=== PATIENT | male | born 1965 | race Caucasian/White ===

== ENCOUNTER 2021-04-27 21:27 | Inpatient (IN) | payer OTHER ==
[~2021-04-27] VITALS: Ht 172.7 cm; Wt 81.6 kg
[~2021-04-27 21:27] MED LIST: ALDACTONE25 MG; AMIODARONE HCL200 MG; ASA81 MG; LASIX40 MG; REGLAN 10ML5 MG/ML; TOPROL XL25 MG; VASOTEC5 MG
[2021-05-01] MEDS ORDERED: ATORVASTATIN CA40 MG (08:06)
[2021-05-01] MEDS ORDERED: RANOLAZINE ER500 MG (08:07)
[2021-05-01] MEDS ORDERED: RAMIPRIL2.5 MG (08:07)
[2021-05-01] MEDS ORDERED: JULUCA 50-25 M1 EACH (08:07)
[2021-05-01] MEDS ORDERED: CLOPIDOGREL BIS75 MG (08:07)
[2021-05-01] MEDS ORDERED: EZETIMIBE10 MG (08:07)
[2021-05-01] MEDS ORDERED: LEVOTHYROXINE100 MCG (08:07)
[2021-05-05] MEDS ORDERED: AMOX-CLAV 875-1 EAC1 PO (15:20)
[2021-05-05] MEDS ORDERED: AMIODARONE HCL200 MG PO (15:20)
[2021-05-05] MEDS ORDERED: INTESTINEX680 M1 PO (15:20)
[2021-05-05] MEDS ORDERED: SPIRONOLACTONE25 MG PO (15:20)
[2021-05-05] MEDS ORDERED: POM (MEDICAMENTO EN PO (15:20)
[2021-05-05] MEDS ORDERED: JULUCA 50-25 M1 EACH PO (15:20)
[2021-05-05] MEDS ORDERED: CLOPIDOGREL BIS75 MG PO (15:20)
[2021-05-05] MEDS ORDERED: ENALAPRIL MALEAT5 MG PO (15:20)
[2021-05-05] MEDS ORDERED: SYNTHROID100 MCG PO (15:20)
[2021-05-05] MEDS ORDERED: FUROSEMIDE40 MG PO (15:20)
[2021-05-05] MEDS ORDERED: LIPITOR40 MG PO (15:20)
[2021-05-05] MEDS ORDERED: FAMOTIDINE20 MG PO (15:20)
[2021-05-05] MEDS ORDERED: CLOTRIMAZOLE45 G1 TOP (15:20)
[2021-05-05] MEDS ORDERED: LINEZOLID600 MG PO (15:20)
[2021-05-05] MEDS ORDERED: TOPROL XL25 M1 PO (15:20)
[2021-05-05] MEDS ORDERED: ST. JOSEPH ASPI81 M2 PO (15:20)
== END 2021-05-05 16:37 | disposition home or self-care (01) | DRG 603 ==
LOC: ER 21:27 → SEC-K 04-28 19:51 → SURH 04-28 20:14
PROVIDERS: ADMIT Internal Medicine; ATTEND Internal Medicine
PROC: 8E0ZXY6 Isolation (ICD-10-PCS; principal; 2021-04-28)
PROC: B24BZZZ Ultrasonography of Heart with Aorta (ICD-10-PCS; 2021-04-28)
DX: L03.312 Cellulitis of back [any part except buttock and flank] (principal); B54 Unspecified malaria; I42.9 Cardiomyopathy, unspecified; Z21 Asymptomatic human immunodeficiency virus [HIV] infection status; I11.9 Hypertensive heart disease without heart failure; I25.2 Old myocardial infarction; E03.9 Hypothyroidism, unspecified; Z95.810 Presence of automatic (implantable) cardiac defibrillator; R74.02 Elevation of levels of lactic acid dehydrogenase [LDH]

== ENCOUNTER 2021-11-23 08:54 | Emergency (ER) | payer OTHER ==
[~2021-11-23] VITALS: Ht 172.7 cm; Wt 52.2 kg
[~2021-11-23 08:54] MED LIST changes: +AMIODARONE HCL200 MG PO; +AMOX-CLAV 875-1 EAC1 PO; +ATORVASTATIN CA40 MG; +CLOPIDOGREL BIS75 MG; +CLOPIDOGREL BIS75 MG PO; +CLOTRIMAZOLE45 G1 TOP; +ENALAPRIL MALEAT5 MG PO; +EZETIMIBE10 MG; +FAMOTIDINE20 MG PO; +FUROSEMIDE40 MG PO; +INTESTINEX680 M1 PO; +JULUCA 50-25 M1 EACH; +JULUCA 50-25 M1 EACH PO; +LEVOTHYROXINE100 MCG; +LINEZOLID600 MG PO; +LIPITOR40 MG PO; +POM (MEDICAMENTO EN PO; +RAMIPRIL2.5 MG; +RANOLAZINE ER500 MG; +SPIRONOLACTONE25 MG PO; +ST. JOSEPH ASPI81 M2 PO; +SYNTHROID100 MCG PO; +TOPROL XL25 M1 PO
== END 2021-11-23 16:16 | disposition home or self-care (01) ==
LOC: ER 08:54
DX: R21 Rash and other nonspecific skin eruption (principal); B20 Human immunodeficiency virus [HIV] disease; B54 Unspecified malaria; Z91.013 Allergy to seafood; Z20.822 Contact with and (suspected) exposure to COVID-19

== ENCOUNTER → 2022-08-23 | Emergency (ER) | payer OTHER ==
[~2022-08-23] VITALS: Ht 172.7 cm; Wt 83.9 kg
[~2022-08-23] MED LIST changes: +CABENUVA 400 MG-4 ML; +DICLOFENAC POTA50 MG PO; +LASIX20 MG; +PRAVASTATIN SOD10 MG
== END | disposition home or self-care (01) ==
LOC: ER 15:39
DX: C18.9 Malignant neoplasm of colon, unspecified (principal); K62.5 Hemorrhage of anus and rectum; Z91.013 Allergy to seafood; I25.2 Old myocardial infarction; B20 Human immunodeficiency virus [HIV] disease; E03.9 Hypothyroidism, unspecified; Z95.810 Presence of automatic (implantable) cardiac defibrillator; Z20.822 Contact with and (suspected) exposure to COVID-19; R59.0 Localized enlarged lymph nodes; I10 Essential (primary) hypertension

== ENCOUNTER 2022-08-30 06:08 | Day surgery (SDC) | payer OTHER ==
[2022-08-30] MEDS ORDERED: TRAMADOL HCL50 MG PO (11:56)
== END 2022-08-30 13:50 | disposition home or self-care (01) ==
LOC: CIR.AMB 06:08
PROVIDERS: ATTEND Surgery
DX: C21.1 Malignant neoplasm of anal canal (principal); Z91.013 Allergy to seafood; K62.89 Other specified diseases of anus and rectum; R19.4 Change in bowel habit; I10 Essential (primary) hypertension; E03.9 Hypothyroidism, unspecified
CPT/HCPCS: 36561; 77001; C1788

== ENCOUNTER 2022-09-23 10:51 | Emergency (ER) | payer OTHER ==
[~2022-09-23] VITALS: Ht 172.7 cm; Wt 83.9 kg
[~2022-09-23 10:51] MED LIST changes: +TRAMADOL HCL50 MG PO
[2022-09-23] MEDS ORDERED: ZOFRAN8 MG PO (11:16)
[2022-09-23] MEDS ORDERED: PERCOCET 10-321 EACH PO (11:16)
== END 2022-09-23 17:39 | disposition home or self-care (01) ==
LOC: ER 10:51
DX: C21.8 Malignant neoplasm of overlapping sites of rectum, anus and anal canal (principal); R10.9 Unspecified abdominal pain; R11.10 Vomiting, unspecified; Z20.822 Contact with and (suspected) exposure to COVID-19; Z91.013 Allergy to seafood

== ENCOUNTER 2022-10-02 07:32 | Inpatient (IN) | payer OTHER ==
[~2022-10-02] VITALS: Ht 172.7 cm; Wt 81.6 kg
[~2022-10-02 07:32] MED LIST changes: +PERCOCET 10-321 EACH PO; +ZOFRAN8 MG PO
== END 2022-10-09 14:50 | disposition home or self-care (01) | DRG 977 ==
LOC: ER 07:32 → MEDJ 17:59 → SEC-K 17:59 → MEDJ 18:40
PROVIDERS: ADMIT Internal Medicine; ATTEND Internal Medicine
PROC: BW21ZZZ Computerized Tomography (CT Scan) of Abdomen and Pelvis (ICD-10-PCS; 2022-10-02)
PROC: 30233R1 Transfusion of Nonautologous Platelets into Peripheral Vein, Percutaneous Approach (ICD-10-PCS; principal; 2022-10-03)
PROC: B030ZZZ Magnetic Resonance Imaging (MRI) of Brain (ICD-10-PCS; 2022-10-03)
PROC: B24BZZZ Ultrasonography of Heart with Aorta (ICD-10-PCS; 2022-10-05)
PROC: BW28ZZZ Computerized Tomography (CT Scan) of Head (ICD-10-PCS; 2022-10-05)
DX: D70.8 Other neutropenia (principal); B20 Human immunodeficiency virus [HIV] disease; K62.5 Hemorrhage of anus and rectum; I50.30 Unspecified diastolic (congestive) heart failure; I42.9 Cardiomyopathy, unspecified; C21.1 Malignant neoplasm of anal canal; K52.89 Other specified noninfective gastroenteritis and colitis; E86.0 Dehydration; E03.9 Hypothyroidism, unspecified; D69.6 Thrombocytopenia, unspecified; I25.10 Atherosclerotic heart disease of native coronary artery without angina pectoris; I11.0 Hypertensive heart disease with heart failure; R50.81 Fever presenting with conditions classified elsewhere; Z95.810 Presence of automatic (implantable) cardiac defibrillator; Z20.822 Contact with and (suspected) exposure to COVID-19
CPT/HCPCS: 70552

== ENCOUNTER 2022-11-05 11:47 | Emergency (ER) | payer OTHER ==
[~2022-11-05] VITALS: Ht 172.7 cm; Wt 78.0 kg
[2022-11-05] MEDS ORDERED: ONDANSETRON ODT8 MG PO (17:51)
== END 2022-11-05 18:03 | disposition home or self-care (01) ==
LOC: ER 11:47
DX: R53.81 Other malaise (principal); R53.1 Weakness; E86.0 Dehydration; I10 Essential (primary) hypertension; E78.00 Pure hypercholesterolemia, unspecified; Z85.89 Personal history of malignant neoplasm of other organs and systems; Z91.013 Allergy to seafood

== ENCOUNTER 2022-11-07 20:42 | Inpatient (IN) | payer OTHER ==
[~2022-11-07] VITALS: Ht 167.6 cm; Wt 79.4 kg
[~2022-11-07 20:42] MED LIST changes: +ONDANSETRON ODT8 MG PO
== END 2022-11-11 18:08 | disposition home or self-care (01) | DRG 394 ==
LOC: ER 20:42 → SEC-K 11-08 03:25 → MEDJ 11-08 03:25
PROVIDERS: ADMIT Specialist; ATTEND Specialist
PROC: BW21ZZZ Computerized Tomography (CT Scan) of Abdomen and Pelvis (ICD-10-PCS; principal; 2022-11-08)
DX: K62.7 Radiation proctitis (principal); B20 Human immunodeficiency virus [HIV] disease; C18.9 Malignant neoplasm of colon, unspecified; K62.5 Hemorrhage of anus and rectum; N30.41 Irradiation cystitis with hematuria; L03.315 Cellulitis of perineum; R31.0 Gross hematuria; D70.9 Neutropenia, unspecified; R50.81 Fever presenting with conditions classified elsewhere; D69.6 Thrombocytopenia, unspecified; Z20.822 Contact with and (suspected) exposure to COVID-19; Z74.01 Bed confinement status

== ENCOUNTER 2024-02-17 22:45 | Emergency (ER) | payer OTHER ==
[~2024-02-17] VITALS: Ht 167.6 cm; Wt 72.6 kg
[2024-02-17] MEDS ORDERED: PLAVIX75 MG PO (23:43)
[2024-02-17] MEDS ORDERED: COZAAR25 MG PO (23:43)
[2024-02-18] MEDS ORDERED: KETOROLAC TROMETHAMINE 60 MG VIAL IM STA (01:06)
[2024-02-18 01:24] LABS: HEMATOCRIT 42.2 % (39.0-48.0); HEMOGLOBIN 14.2 g/dL (13-16.00); MEAN CELL VOLUME 99.3 fL (80.0-100.00); MEAN CORPUSCULAR HEMOGLOBIN 33.5 pg (27.00-32.0); MEAN CORPUSCULAR HGB CONC 33.8 g/dl (32.0-36.0); PLATELET COUNT 174 K/uL (150-450); RED BLOOD COUNT 4.25 M/uL (4.00-6.00); RED CELL DISTRIBUTION WIDTH 14.1 % (11.5-14.5)
== END 2024-02-18 02:14 | disposition home or self-care (01) ==
LOC: ER
DX: J06.9 Acute upper respiratory infection, unspecified (principal); Z91.013 Allergy to seafood; Z20.822 Contact with and (suspected) exposure to COVID-19